=== PATIENT | female | born 1945 | race Caucasian/White ===

== ENCOUNTER → 2016-06-29 | Outpatient (CLI) | payer OTHER, MEDICARE ==
--- NOTE | 2016-06-29 14:18 | MA ---
Screening Digital Mammogram Clinical Indications: Routine screening. Technique: Standard cephalocaudal and mediolateral oblique projections were obtained. This examinat ion was processed by the [employer] computer aided detection system. Comparison: May 2012, August 2009 and February 2007. Breast density: A; The breast tissue is mostly fat. Findings: CAD was reviewed. No suspicious findings are identified. Impression: Negative mammogram. BI-RADS 1. Recommendation: Routine screening is recommended in one year, as long as physical examination is jose martin ign in this patient with extremely dense breast parenchyma. [facility] will send a result letter to the patient. Negative mammography should not preclude additional workup of a clinically suspicious finding. The patient's information is entered into a reminder system with a target due date for her next mammo gram.
== END ==
LOC: BRMIMAGING 13:36
PROVIDERS: ATTEND Family Medicine
DX: Z12.31 Encounter for screening mammogram for malignant neoplasm of breast (principal)
CPT/HCPCS: G0202

== ENCOUNTER → 2016-07-03 | Outpatient (CLI) | payer OTHER, MEDICARE ==
--- NOTE | 2016-07-03 20:51 | DX ---
DEXA Bone Mineral Densitometry Clinical Indications: Screening. Comparison: None Technique: Bone Mineral Densitometry (BMD) by Dual Energy X-Ray Absorptiometry (DEXA) was performed utilizing the [employer] scanner. The AP projection of the spine is evaluated. The left forearm w ere evaluated in the AP projection. Hips are not evaluated because of surgery. Vertebral fracture as sessment was also performed. AP Lumbar Spine: The L1, L2, L3 and L4 vertebral bodies are evaluated. BMD: 1.31 gm/cm2 T-score: 0.9 SD Z-score: 1.5 SD AP right Forearm: BMD: 0.96 gm/cm2 T-score: 1 SD Z-score: 3 SD Vertebral Fracture Assessment: No significant fracture deformity Conclusion: Considering the lowest measured site, patient is normal. Any bone loss in this patient is probably related to aging or estrogen deficiency. Recommendations: To prevent osteoporosis and to promote the patient's bone density, the following recommendations shou ld be considered: 1. Pursue a regular regimen of weightbearing and muscle strengthening exercises in order to reduce t he risk of falls and fractures (as tolerated by the patient's general medical condition). 2. Ensure that daily dietary calcium uptake is maximized. 3. Ensure that intake of vitamin D is 400 to 800 international units. 4. Consider follow-up DEXA scan in two years to assess the rate of bone loss in this patient.
== END ==
LOC: BRMIMAGING 10:32
PROVIDERS: ATTEND Family Medicine
DX: Z13.820 Encounter for screening for osteoporosis (principal)

== ENCOUNTER → 2017-07-20 | Outpatient (CLI) | payer OTHER, MEDICARE | LOC: BRMIMAGING 13:34 | PROVIDERS: ATTEND Family Medicine | DX: Z12.31 Encounter for screening mammogram for malignant neoplasm of breast (principal) ==